=== PATIENT | female | born 1990 ===

== ENCOUNTER 2018-06-29 16:54 | Emergency (ER) | payer OTHER, SELFPAY ==
[2018-06-29] MEDS ORDERED: Ketorolac Tromethamine 60 MG/2 ML VIAL ONE ×2 (17:21→17:22)
[2018-06-29] MEDS ORDERED: Diazepam 5 MG TAB ONE (17:21)
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
== END 2018-06-29 18:13 | disposition home or self-care (01) ==
LOC: ERS 16:54
DX: S16.1XXA Strain of muscle, fascia and tendon at neck level, initial encounter (principal); F17.210 Nicotine dependence, cigarettes, uncomplicated; V43.52XA Car driver injured in collision with other type car in traffic accident, initial encounter
CPT/HCPCS: 72125; 96372; J1885